=== PATIENT | male | born 1995 | race Caucasian/White ===

== ENCOUNTER 2018-11-03 03:19 | Emergency (ER) | payer SELFPAY ==
[~2018-11-03] VITALS: Ht 177.8 cm; Wt 65.0 kg
[2018-11-03 03:29] VITALS: Ht 177.8 cm; Wt 65.0 kg
[2018-11-03] MEDS ORDERED: QUET100T PO (05:21)
--- NOTE | 2018-11-03 05:36 | ERD ---
ER Documentation Chief Complaint Chief Complaint CHEST PAIN UPON COUGHING HPI This is a 22-year-old male who presents for evaluation of chest pain associated with cough., His cough has had some phlegm with it. He denies shortness of breath, he has not had a fever, he denies nausea vomiting. He has not had hemoptysis, he has not had leg swelling, he has had no wheezing. ROS All systems reviewed and are negative except as per history of present illness. Medications Home Meds Reported Medications Quetiapine Fumarate* (Seroquel*) 100 Mg Tablet, 100 MG PO HS, #30 TAB 11/03/18 Allergies Allergies: Coded Allergies: No Known Allergies (Verified Allergy, Unknown, 11/03/18) PMhx/Soc Medical and Surgical Hx: pt denies Medical Hx, pt denies Surgical Hx History of Surgery: No Anesthesia Reaction: No Hx Neurological Disorder: No Hx Respiratory Disorders: No Hx Cardiac Disorders: No Hx Psychiatric Problems: No Hx Miscellaneous Medical Probl: No Hx Alcohol Use: No Hx Substance Use: No Hx Tobacco Use: No Smoking Status: Never smoker Physical Exam Vitals Vital Signs Date Temp Pulse Resp B/P (MAP) Pulse Ox O2 O2 Flow FiO2 Time Delivery Rate 11/03/18 97.5 81 16 125/75 100 Room Air 03:33 (92) 11/03/18 97.5 71 16 125/75 100 03:29 (92) Physical Exam Const: No acute distress Head: Atraumatic Eyes: Normal Conjunctiva ENT: Normal External Ears, Nose and Mouth. Neck: Full range of motion. No meningismus. Resp: Clear to auscultation bilaterally, no wheezes rales or rhonchi Cardio: Regular rate and rhythm, no murmurs Abd: Soft, non tender, non distended. Normal bowel sounds Skin: No petechiae or rashes Back: No midline or flank tenderness Ext: No cyanosis, or edema Neur: Awake and alert Psych: Normal Mood and Affect Procedures/MDM 22-year-old male presents for evaluation of chest pain and cough. Exam reveals a well-appearing nontoxic male in no acute respiratory distress. Chest x-ray was negative for consolidation, pneumothorax, or other pathology. EKG showed early repolarization, with no evidence of ischemia, I do not suspect acute coronary syndrome, given patient is more likely infectious symptoms, and also lack of risk factors, and age. Discussed findings with patient, at discharge she was in no acute distress, strict return precautions given. Departure Diagnosis: Primary Impression: Chest pain Chest pain type: unspecified Qualified Codes: R07.9 - Chest pain, unspecified Condition: Stable Patient Instructions: Chest Pain, Uncertain Cause Additional Instructions: Call your primary care doctor TOMORROW for an appointment during the next 2-3 days.See the doctor sooner or return here if your condition worsens before your appointment time. ENMANUEL KIMBALL MD Nov 03, 2018 05:36
[2018-11-03 06:00] VITALS: BP 103/72; PULSE 71; RESP 18
== END 2018-11-03 06:03 | disposition home or self-care (01) ==
LOC: E/R 03:19
DX: R07.9 Chest pain, unspecified (principal)
CPT/HCPCS: 71045; 93005